=== PATIENT | male | born 1955 | race Caucasian/White ===

== ENCOUNTER 2016-08-22 22:06 | Inpatient (IN) | payer OTHER ==
[2016-08-22 22:41] LABS: BASOPHIL 0.1 % (0-2); EOSINOPHIL 0 % (0-5); HCT 35.2 % (42.0-52.0); HGB 12.5 g/dl (13.2-18.0); LYMPHOCYTE 11.3 % (15-48); MCH 34.3 pg (25.0-31.0); MCHC 35.5 g/dL (32.0-36.0); MCV 96.7 fL (78.0-100.0); MONOCYTE 9.7 % (0-12); MPV 9.7 fL (6.0-9.5); NEUTROPHIL 78.9 % (41-80); PLT 217 K/uL (150-400); RBC 3.64 M/uL (4.70-6.00); RDW 14.5 % (11.5-14.0); WBC 9.5 K/uL (4.0-10.5)
[2016-08-22 22:46] LABS: INR 0.89 (0.9-1.2); PROTHROMBIN TIME 11.7 SECONDS (11.7-14.0)
[2016-08-22 23:00] LABS: ALBUMIN 4.7 g/dL (3.5-5.0); BILIRUBIN - TOTAL 0.8 mg/dL (0.1-1.0); POTASSIUM 3.6 mmol/L (3.5-5.1); TOTAL PROTEIN 7.7 g/dL (6.4-8.3)
[2016-08-23 03:35] LABS: BASOPHIL 0.2 % (0-2); EOSINOPHIL 0 % (0-5); HCT 31.5 % (42.0-52.0); HGB 11.1 g/dl (13.2-18.0); LYMPHOCYTE 9.8 % (15-48); MCH 34.6 pg (25.0-31.0); MCHC 35.2 g/dL (32.0-36.0); MCV 98.1 fL (78.0-100.0); MONOCYTE 10.6 % (0-12); MPV 9.5 fL (6.0-9.5); NEUTROPHIL 79.4 % (41-80); PLT 173 K/uL (150-400); RBC 3.21 M/uL (4.70-6.00); RDW 14.6 % (11.5-14.0); WBC 6.6 K/uL (4.0-10.5)
[2016-08-23 03:54] LABS: ALBUMIN 3.9 g/dL (3.5-5.0); BILIRUBIN - TOTAL 0.8 mg/dL (0.1-1.0); CREATININE 0.9 mg/dL (0.7-1.2); GLOBULIN (CALCULATION) 2.7 g/dL (2.2-4.2); POTASSIUM 3.5 mmol/L (3.5-5.1); TOTAL PROTEIN 6.6 g/dL (6.4-8.3)
[2016-08-24 04:48] LABS: HCT 32.6 % (42.0-52.0); HGB 11.3 g/dl (13.2-18.0); MCH 34.8 pg (25.0-31.0); MCHC 34.7 g/dL (32.0-36.0); MCV 100.3 fL (78.0-100.0); MPV 9.9 fL (6.0-9.5); RBC 3.25 M/uL (4.70-6.00); RDW 14.8 % (11.5-14.0); WBC 6.5 K/uL (4.0-10.5)
[2016-08-24 05:15] LABS: ALBUMIN 3.9 g/dL (3.5-5.0); ALKALINE PHOSHATASE 94 U/L (59-141); ALT 115 U/L (2-40); AMYLASE 231 U/L (28-100); AST 126 U/L (0-37); BILIRUBIN - DIRECT 0.3 mg/dL (0.0-0.2); BILIRUBIN - TOTAL 0.7 mg/dL (0.1-1.0); BUN 17 mg/dL (6-25); CHLORIDE 88 mmol/L (98-107); CREATININE 0.9 mg/dL (0.7-1.2); GLOBULIN (CALCULATION) 2.5 g/dL (2.2-4.2); GLUCOSE 113 mg/dL (70-105); LIPASE >600 U/L (13-60); POTASSIUM 3.5 mmol/L (3.5-5.1); TOTAL PROTEIN 6.4 g/dL (6.4-8.3)
[2016-08-25 04:10] LABS: HCT 28.2 % (42.0-52.0); HGB 9.7 g/dl (13.2-18.0); MCH 34.3 pg (25.0-31.0); MCHC 34.4 g/dL (32.0-36.0); MCV 99.6 fL (78.0-100.0); MPV 9.7 fL (6.0-9.5); RBC 2.83 M/uL (4.70-6.00); RDW 14.2 % (11.5-14.0); WBC 5.7 K/uL (4.0-10.5)
[2016-08-25 04:21] LABS: AMYLASE 159 U/L (28-100); BUN 12 mg/dL (6-25); CHLORIDE 96 mmol/L (98-107); CREATININE 0.7 mg/dL (0.7-1.2); GLUCOSE 135 mg/dL (70-105); LIPASE >600 U/L (13-60); POTASSIUM 2.8 mmol/L (3.5-5.1)
[2016-08-25 14:52] LABS: MAGNESIUM 1.88 mg/dL (1.40-2.10)
[2016-08-26 04:22] LABS: HCT 30.5 % (42.0-52.0); HGB 10.5 g/dl (13.2-18.0); MCH 34.4 pg (25.0-31.0); MCHC 34.4 g/dL (32.0-36.0); MPV 9.2 fL (6.0-9.5); RBC 3.05 M/uL (4.70-6.00); RDW 14.4 % (11.5-14.0); WBC 4.8 K/uL (4.0-10.5)
[2016-08-26 04:41] LABS: CREATININE 0.7 mg/dL (0.7-1.2); POTASSIUM 3.4 mmol/L (3.5-5.1)
[2016-08-27 03:50] LABS: BASOPHIL 0.6 % (0-2); HCT 30.6 % (42.0-52.0); HGB 10.4 g/dl (13.2-18.0); LYMPHOCYTE 24.8 % (15-48); MCH 34.3 pg (25.0-31.0); MONOCYTE 17.1 % (0-12); MPV 9.3 fL (6.0-9.5); NEUTROPHIL 56.5 % (41-80); PLT 278 K/uL (150-400); RBC 3.03 M/uL (4.70-6.00); RDW 14.7 % (11.5-14.0); WBC 4.8 K/uL (4.0-10.5)
[2016-08-27 04:04] LABS: ALBUMIN 3.3 g/dL (3.5-5.0); ALKALINE PHOSHATASE 107 U/L (59-141); ALT 80 U/L (2-40); AMYLASE 123 U/L (28-100); AST 54 U/L (0-37); BILIRUBIN - TOTAL 0.3 mg/dL (0.1-1.0); BUN 6 mg/dL (6-25); CHLORIDE 100 mmol/L (98-107); CREATININE 0.7 mg/dL (0.7-1.2); GLOBULIN (CALCULATION) 2.7 g/dL (2.2-4.2); GLUCOSE 124 mg/dL (70-105); POTASSIUM 3.3 mmol/L (3.5-5.1)
[2016-08-27 04:12] LABS: LIPASE >600 U/L (13-60)
[2016-08-27 09:40] LABS: RETICULOCYTE COUNT 2.2 % (1.0-2.0)
[2016-08-27 09:56] LABS: IRON 36 ug/dL (44-196); IRON % SATURATION 20 %SAT (20-50); TIBC (TOTAL IRON + UIBC) 181 U/L (228-428); UIBC 145 ug/dL (112-346)
[2016-08-27 11:00] LABS: FOLIC ACID (SERUM) 13.5 ng/mL (4.4-31.0)
[2016-08-28 04:58] LABS: BASOPHIL 0.5 % (0-2); HCT 30.2 % (42.0-52.0); HGB 10.3 g/dl (13.2-18.0); LYMPHOCYTE 20.4 % (15-48); MCH 34.4 pg (25.0-31.0); MCHC 34.1 g/dL (32.0-36.0); MPV 8.9 fL (6.0-9.5); NEUTROPHIL 62.1 % (41-80); PLT 295 K/uL (150-400); RBC 2.99 M/uL (4.70-6.00); RDW 14.6 % (11.5-14.0); WBC 5.8 K/uL (4.0-10.5)
[2016-08-28 05:15] LABS: ALBUMIN 3.2 g/dL (3.5-5.0); BILIRUBIN - TOTAL 0.3 mg/dL (0.1-1.0); CREATININE 0.7 mg/dL (0.7-1.2); GLOBULIN (CALCULATION) 2.7 g/dL (2.2-4.2); MAGNESIUM 1.89 mg/dL (1.40-2.10); POTASSIUM 3.2 mmol/L (3.5-5.1); TOTAL PROTEIN 5.9 g/dL (6.4-8.3)
[2016-08-29 04:57] LABS: BASOPHIL 0.7 % (0-2); HCT 32.5 % (42.0-52.0); HGB 11.2 g/dl (13.2-18.0); LYMPHOCYTE 19.8 % (15-48); MCH 34.5 pg (25.0-31.0); MCHC 34.5 g/dL (32.0-36.0); MONOCYTE 10.8 % (0-12); MPV 9.7 fL (6.0-9.5); NEUTROPHIL 63.7 % (41-80); PLT 371 K/uL (150-400); RBC 3.25 M/uL (4.70-6.00); RDW 14.5 % (11.5-14.0); WBC 7.1 K/uL (4.0-10.5)
[2016-08-29 05:15] LABS: ALBUMIN 3.7 g/dL (3.5-5.0); BILIRUBIN - TOTAL 0.3 mg/dL (0.1-1.0); CREATININE 0.7 mg/dL (0.7-1.2); GLOBULIN (CALCULATION) 2.7 g/dL (2.2-4.2); POTASSIUM 3.9 mmol/L (3.5-5.1); TOTAL PROTEIN 6.4 g/dL (6.4-8.3)
[2016-08-30 07:34] LABS: ALBUMIN 3.2 g/dL (3.5-5.0); BILIRUBIN - TOTAL 0.2 mg/dL (0.1-1.0); CREATININE 0.7 mg/dL (0.7-1.2); GLOBULIN (CALCULATION) 2.1 g/dL (2.2-4.2); POTASSIUM 3.3 mmol/L (3.5-5.1); TOTAL PROTEIN 5.3 g/dL (6.4-8.3)
[2016-08-31 05:34] LABS: CREATININE 0.9 mg/dL (0.7-1.2); POTASSIUM 3.7 mmol/L (3.5-5.1)
[2016-09-01 06:19] LABS: ALBUMIN 3.4 g/dL (3.5-5.0); BILIRUBIN - TOTAL 0.2 mg/dL (0.1-1.0); CREATININE 0.8 mg/dL (0.7-1.2); GLOBULIN (CALCULATION) 2.5 g/dL (2.2-4.2); POTASSIUM 3.5 mmol/L (3.5-5.1); TOTAL PROTEIN 5.9 g/dL (6.4-8.3)
[2016-09-01] MEDS ORDERED: METRONIDAZOLE500 MG PO (13:47)
[2016-09-01] MEDS ORDERED: NORCO 5-325 TA1 EACH PO (13:48)
[2016-09-01] MEDS ORDERED: LISINOPRIL-HCT1 EAC1 PO (13:48)
[2016-09-01] MEDS ORDERED: NEXIUM 24HR22.3 MG PO (13:49)
[2016-09-01] MEDS ORDERED: LEXAPRO20 MG PO (13:49)
[2016-09-01] MEDS ORDERED: METOPROLOL SUCC50 MG PO (13:49)
== END 2016-09-01 15:00 | disposition home or self-care (01) | DRG 438 ==
LOC: FER 22:06 → FICU 23:58 → FMS 08-27 11:00
PROVIDERS: Emergency Medicine; Internal Medicine; ADMIT Internal Medicine
DX: K85.20 Alcohol induced acute pancreatitis without necrosis or infection (principal); G93.41 Metabolic encephalopathy; F10.231 Alcohol dependence with withdrawal delirium; A04.7 Enterocolitis due to Clostridium difficile; I10 Essential (primary) hypertension; K21.9 Gastro-esophageal reflux disease without esophagitis; F17.200 Nicotine dependence, unspecified, uncomplicated; Z82.3 Family history of stroke; Z82.49 Family history of ischemic heart disease and other diseases of the circulatory system; F32.9 Major depressive disorder, single episode, unspecified
CPT/HCPCS: 36415; 74020; 74022; 76705; 80048; 80053; 80061; 80076; 82150; 82607; 82746; 83540; 83550; 83690; 83735; 84132; 85025; 85044; 85610; 87045; 87046; 87205; 87324; 87328; 87337; 87449; 97116; 97162; 97166; 97530; 97530-GP; 97535; C9113; G0480; J2060; J2270; J2405; J2916; J3360; J3411; J3475; J7060